=== PATIENT | female | born 1975 | race African-American/Black ===

== ENCOUNTER 2021-11-30 14:27 | Emergency (ER) | payer OTHER ==
[~2021-11-30] VITALS: Ht 170.2 cm; Wt 118.0 kg
[2021-11-30 14:33] VITALS: BP 171/104
[2021-11-30] MEDS ORDERED: SODIUM CHLORIDE 0.9% IRRIG SOLUTION 1000ML IR ONE (14:45)
[2021-11-30] MEDS ORDERED: TETRACAINE 0.5% OPHTH DROPS 4ML BOTHEYE ONE (14:45)
[2021-11-30] MEDS ORDERED: FLUORESCEIN SODIUM 1MG/STRIP BOTHEYE ONE (14:45)
[2021-11-30] MEDS: FLUORESCEIN SODIUM 1MG/STRIP BOTHEYE NR ×2 (18:00→18:17)
[2021-11-30] MEDS ORDERED: TETRACAINE 0.5% OPHTH DROPS 4ML BOTHEYE NR (18:00)
[2021-11-30] MEDS ORDERED: KETO5DRO37 LEFTEYE (18:20)
[2021-11-30] MEDS ORDERED: POLY10DR LEFTEYE (18:20)
== END 2021-11-30 18:27 | disposition home or self-care (01) ==
LOC: ER 14:42
DX: S05.02XA Injury of conjunctiva and corneal abrasion without foreign body, left eye, initial encounter (principal); X58.XXXA Exposure to other specified factors, initial encounter; Y93.89 Activity, other specified; Y92.018 Other place in single-family (private) house as the place of occurrence of the external cause
CPT/HCPCS: 99283